=== PATIENT | female | born 1930 | race Hispanic/Latino ===

== ENCOUNTER 2016-11-04 09:42 | Emergency (ER) | payer MEDICARE, OTHER ==
[2016-11-04 09:43] VITALS: BMI 28.6
[2016-11-04 10:05] VITALS: TEMP 98.3
--- NOTE | 2016-11-04 10:34 | ED PDOC ---
Arrival/HPI - General Chief Complaint: Medical Clearance Time Seen by Provider: 11/04/16 10:21 Historian: Patient - History of Present Illness Narrative History of Present Illness (Text): 11/04/16 10:30 86yo female with PMHx of DM referred to Ed by Poison control s/p taking 8mg of Amaryl and 1000mg of Metformin at 0830am this morning. States her FS s/p was 84. She drank a cup of orange juice and her FS in ED was 281. In ED she denies rash, SOB, chest pain, change in urine color, dizziness, bleeding, bruising, any somatic complaint. Past Medical History - Provider Review Nursing Documentation Reviewed: Yes - Infectious Disease Hx of Infectious Diseases: None - Tetanus Immunization Tetanus Immunization: Unknown - Reproductive Menopause: Yes - Cardiac Hx Cardiac Arrhythmia: Yes Hx Hypertension: Yes Hx Pacemaker: No - Pulmonary Hx Pneumonia: Yes - Neurological Hx Paralysis: No - HEENT Hx Cataracts: Yes - Renal Hx Renal Disorder: No - Endocrine/Metabolic Hx Diabetes Mellitus Type 2: Yes - Hematological/Oncological Hx Blood Transfusions: No Hx Blood Transfusion Reaction: No - Integumentary Hx Dermatological Disorder: No - Musculoskeletal/Rheumatological Hx Musculoskeletal Disorders: Yes Hx Arthritis: Yes - Gastrointestinal Hx Gastroesophageal Reflux: Yes - Genitourinary/Gynecological Hx Genitourinary Disorders: No - Psychiatric Hx Emotional Abuse: No Hx Physical Abuse: No Hx Substance Use: No - Surgical History Hx Orthopedic Surgery: Yes Other/Comment: several abd sx. DNC. carpal tunnel - Anesthesia Hx Anesthesia: Yes Hx Anesthesia Reactions: No Hx Malignant Hyperthermia: No - Suicidal Assessment Feels Threatened In Home Enviroment: No Family/Social History - Physician Review Nursing Documentation Reviewed: Yes Family/Social History: Unknown Family HX Smoking Status: Never Smoked Hx Alcohol Use: No Hx Substance Use: No Hx Substance Use Treatment: No Allergies/Home Meds Allergies/Adverse Reactions: Allergies fentanyl Allergy (Severe, Verified 06/30/16 08:06) ANAPHYLAXIS bacitracin Allergy (Intermediate, Verified 11/04/16 10:05) RASH cefaclor Allergy (Intermediate, Verified 11/04/16 10:05) RASH atorvastatin Allergy (Mild, Verified 11/04/16 10:05) RASH erythromycin base Allergy (Mild, Verified 11/04/16 10:05) RASH iodine Allergy (Mild, Verified 11/04/16 10:05) RASH lovastatin [From Mevacor] Allergy (Mild, Verified 11/04/16 10:05) RASH Penicillins Allergy (Mild, Verified 11/04/16 10:05) RASH simvastatin [From Zocor] Allergy (Mild, Verified 11/04/16 10:05) RASH ciprofloxacin Adverse Reaction (Verified 11/04/16 10:05) ITCHING STEROIDS Allergy (Severe, Uncoded 08/25/16 23:39) SHORTNESS OF BREATH CONTRAST MEDIA,IODINE RELATED Allergy (Mild, Uncoded 08/25/16 23:39) ITCHING TAPE Allergy (Mild, Uncoded 08/25/16 23:39) RASH ADHESIVE TAPE & IV TAPE EPIDURAL INJ Adverse Reaction (Intermediate, Uncoded 08/25/16 23:39) ITCHING Home Medications: Home Meds Medication Instructions Recorded Confirmed Aspirin [Adult Low Dose Aspirin EC] 1 tab PO DAILY 08/25/16 11/04/16 Esomeprazole Magnesium [Nexium] 20 mg PO DAILY 08/25/16 11/04/16 Glimepiride [Amaryl] 1 tab PO BID 08/25/16 11/04/16 Rosuvastatin Calcium [Crestor] 1 tab PO DAILY 08/25/16 11/04/16 Valsartan [Diovan] 1 tab PO DAILY 08/25/16 11/04/16 diltiaZEM CD [Cardizem CD] 1 tab PO DAILY 08/25/16 11/04/16 metFORMIN [glucOPHAGE] 1 tab PO BID 08/25/16 11/04/16 Review of Systems - Physician Review All systems were reviewed & negative as marked: Yes - Review of Systems Constitutional: Normal Eyes: Normal ENT: Normal Respiratory: Normal Cardiovascular: Normal Gastrointestinal: Normal Genitourinary Female: Normal Musculoskeletal: Normal Skin: Normal Neurological: Normal Endocrine: Normal Hemo/Lymphatic: Other (Overdose of Amaryl and Metformin) Psychiatric: Normal Physical Exam Vital Signs Temp Pulse Resp BP Pulse Ox 11/04/16 13:51 93 H 16 139/87 96 11/04/16 11:34 86 16 128/77 96 11/04/16 09:56 98.3 F 103 H 19 119/84 97 Temperature: Afebrile Blood Pressure: Normal Pulse: Regular Respiratory Rate: Normal Appearance: Positive for: Well-Appearing, Non-Toxic, Comfortable Pain Distress: None Mental Status: Positive for: Alert and Oriented X 3 Finger Stick Blood Glucose: 231 - Systems Exam Head: Present: Atraumatic, Normocephalic Pupils: Present: PERRL Extroacular Muscles: Present: EOMI Conjunctiva: Present: Normal Mouth: Present: Moist Mucous Membranes Neck: Present: Normal Range of Motion Respiratory/Chest: Present: Clear to Auscultation, Good Air Exchange. No: Respiratory Distress, Accessory Muscle Use Cardiovascular: Present: Regular Rate and Rhythm, Normal S1, S2. No: Murmurs Abdomen: Present: Normal Bowel Sounds. No: Tenderness, Distention, Peritoneal Signs Back: Present: Normal Inspection Upper Extremity: Present: Normal Inspection. No: Cyanosis, Edema Lower Extremity: Present: Normal Inspection. No: Edema Neurological: Present: GCS=15, CN II-XII Intact, Speech Normal Skin: Present: Warm, Dry, Normal Color. No: Rashes Psychiatric: Present: Alert, Oriented x 3, Normal Insight, Normal Concentration Medical Decision Making ED Course and Treatment: 11/04/16 14:32 Pt presented to ED for stated history. She remain AAO x3. FS remain stable at 200's. She continue to denies any somatic complaint, asymptomatic in ED. Case was DW with ED, from poison control who advised that pt be watched for 6rs from when she took her medication. It became 6hrs at 1430. Pt will be DC home to f/u with her PMD. Advised not to take her hypoglycemic today. TRT ED for any new or worsening symptoms. Disposition/Present on Arrival - Present on Arrival Any Indicators Present on Arrival: No History of DVT/PE: No History of Uncontrolled Diabetes: No Urinary Catheter: No History of Decub. Ulcer: No History Surgical Site Infection Following: None - Disposition Have Diagnosis and Disposition been Completed?: Yes Diagnosis: Overdose Disposition: HOME/ ROUTINE Disposition Time: 14:40 Patient Plan: Discharge Patient Problems: Current Active Problems Problem Status Diagnosed Overdose Acute Condition: STABLE Discharge Instructions (ExitCare): Adult Overdose (ED) Additional Instructions: Follow up with your Doctor Don not take your Diabetic medications today Return to ED for any new symptoms
[2016-11-04 12:01] VITALS: RESP 16; O2SAT 96
[2016-11-04 14:51] VITALS: BP 121/68; PULSE 82
== END 2016-11-04 14:51 | disposition home or self-care (01) ==
LOC: ED 09:42
DX: T50.991A Poisoning by other drugs, medicaments and biological substances, accidental (unintentional), initial encounter (principal); Y92.89 Other specified places as the place of occurrence of the external cause; I10 Essential (primary) hypertension; E11.9 Type 2 diabetes mellitus without complications

== ENCOUNTER 2017-08-25 22:29 | Emergency (ER) | payer MEDICARE, OTHER ==
[2017-08-25 22:30] VITALS: BMI 28.6
== END 2017-08-25 23:04 | disposition left against medical advice (07) ==
LOC: ED 22:29
DX: Z02.89 Encounter for other administrative examinations (principal); R10.9 Unspecified abdominal pain

== ENCOUNTER 2018-08-14 10:56 | Day surgery (SDC) | payer MEDICARE, OTHER ==
[2018-08-14] MEDS ORDERED: Propofol 10 mg/ml Inj (20 ML) ONE (13:39)
[2018-08-14] MEDS ORDERED: Sodium Chloride 0.9% 1,000 ML IV SCH (14:30)
[2018-08-14 15:37] VITALS: BP 151/58; PULSE 70; RESP 18; TEMP 97.7; O2SAT 96
== END 2018-08-14 16:40 | disposition home or self-care (01) ==
LOC: ENDO 10:56
PROVIDERS: ATTEND Internal Medicine Gastroenterology
DX: K21.9 Gastro-esophageal reflux disease without esophagitis (principal); K25.9 Gastric ulcer, unspecified as acute or chronic, without hemorrhage or perforation; K44.9 Diaphragmatic hernia without obstruction or gangrene; I10 Essential (primary) hypertension; Z88.0 Allergy status to penicillin; Z91.041 Radiographic dye allergy status; Z79.4 Long term (current) use of insulin; E11.319 Type 2 diabetes mellitus with unspecified diabetic retinopathy without macular edema; H35.30 Unspecified macular degeneration; E78.00 Pure hypercholesterolemia, unspecified; E11.40 Type 2 diabetes mellitus with diabetic neuropathy, unspecified; E03.9 Hypothyroidism, unspecified; Z88.5 Allergy status to narcotic agent; Z88.8 Allergy status to other drugs, medicaments and biological substances; Z80.0 Family history of malignant neoplasm of digestive organs; R10.11 Right upper quadrant pain; R13.10 Dysphagia, unspecified; Z87.11 Personal history of peptic ulcer disease; Z90.49 Acquired absence of other specified parts of digestive tract; Z86.010 Personal history of colon polyps; K29.50 Unspecified chronic gastritis without bleeding
CPT/HCPCS: 43239; 88305; 88342; J2704; J7030; J7040